=== PATIENT | female | born 1970 | race Hispanic/Latino ===

== ENCOUNTER 2017-10-13 10:06 | Outpatient (CLI) | payer BC ==
--- NOTE | 2017-10-13 11:49 | ULT ---
ULTRASOUND PELVIC ULTRASOUND TRANSVAGINAL DOPPLER DUPLEX: Date: 10/13/17 HISTORY: 47-year-old female with menometrorrhagia. TECHNIQUE: Transabdominal transducer used to evaluate intrapelvic contents using the urinary bladder as an acous tic window. Endovaginal transducer used to visualize intrapelvic contents in greater detail. Color fl ow Doppler and Pulsed Doppler spectral waveform analysis of ovaries. FINDINGS: Uterus: 12.5 x 7.5 x 8.5 cm. Endometrial Stripe: 0.8 cm (8 mm). There is a circumscribed, solid myometrial mass measuring approximately 8.0 x 9.5 x 7.5 cm occupying a large portion of the uterine body and fundus. Right Ovary: 2.5 x 2 x 2 cm. There is a 1.5 x 1 x 1.5 cm dominant follicle in the right ovary. Blood flow is demonstrated in the right ovary by Doppler. Left Ovary: Not visualized. No free fluid is visualized. IMPRESSION: 1. Large, 9.5 cm, uterine leiomyoma (fibroid). 2. Enlargement of the uterus. 3. Essentially normal right ovary. 4. Left ovary not visualized. 5. 8 mm endometrial stripe. GABI Coelho POS: KARMEN
== END 2017-10-13 10:07 | disposition home or self-care (01) ==
LOC: ULT 10:06
PROVIDERS: ATTEND Family Medicine
DX: N92.0 Excessive and frequent menstruation with regular cycle (principal); D25.9 Leiomyoma of uterus, unspecified; N85.2 Hypertrophy of uterus; N85.00 Endometrial hyperplasia, unspecified
CPT/HCPCS: 76856

== ENCOUNTER 2018-05-16 13:38 | Outpatient (CLI) | payer BC | END 2018-05-16 13:39 | disposition home or self-care (01) | LOC: BICMAMMO 13:38 | PROVIDERS: ATTEND Family Medicine | DX: Z12.31 Encounter for screening mammogram for malignant neoplasm of breast (principal) | CPT/HCPCS: 77063; 77067 ==

== ENCOUNTER 2018-11-09 20:15 | Emergency (ER) | payer BC ==
[2018-11-09] MEDS ORDERED: HYDROcodone/Acetaminophen 10/325 mg Tablet ONE ×2 (20:50→20:54)
--- NOTE | 2018-11-09 21:10 | RAD ---
FOUR VIEWS OF THE LEFT KNEE: 11/09/18 COMPARISON: None. HISTORY: Left knee pain. FINDINGS: Four views of the left knee shows no evidence of acute fracture or dislocation. No knee effusion is seen. No degenerative changes are present. IMPRESSION: Unremarkable exam. POS: KARMEN
== END 2018-11-09 21:09 | disposition home or self-care (01) ==
LOC: ERS 20:15
DX: M25.562 Pain in left knee (principal); E05.90 Thyrotoxicosis, unspecified without thyrotoxic crisis or storm; D64.9 Anemia, unspecified; I10 Essential (primary) hypertension; Z79.899 Other long term (current) drug therapy
CPT/HCPCS: 99283

== ENCOUNTER 2019-07-14 14:18 | Outpatient (CLI) | payer BC ==
--- NOTE | 2019-07-14 15:11 | MMO ---
Bilateral MAMMO Bilat Screen [facility]. CLINICAL HISTORY: Patient is 48 years old and is seen for screening. The patient has no family history of breast cancer. The patient has no personal history of cancer. VIEWS: The views performed were: bilateral craniocaudal with tomosynthesis and bilateral mediolateral oblique with tomosynthesis. FILMS COMPARED: The present examination has been compared to prior imaging studies performed at [facility] on 04/06/2014, 10/25/2015, 02/12/2017 and 05/16/2018. MAMMOGRAM FINDINGS: There are scattered fibroglandular densities. There are no suspicious masses, suspicious calcifications, or new areas of architectural distortion. IMPRESSION: THERE IS NO MAMMOGRAPHIC EVIDENCE OF MALIGNANCY. A ROUTINE FOLLOW-UP MAMMOGRAM IN 1 YEAR IS RECOMMENDED. THE RESULTS OF THIS EXAM WERE SENT TO THE PATIENT. ACR BI-RADS Category 1 - Negative MAMMOGRAPHY NOTE: 1. A negative mammogram report should not delay a biopsy if a dominant of clinically suspicious mass is present. 2. Approximately 10% to 15% of breast cancers are not detected by mammography. 3. Adenosis and dense breasts may obscure an underlying neoplasm. Reported by: CEDRIC REYNOLDS MD Electonically Signed: [id number]
== END 2019-07-14 14:19 | disposition home or self-care (01) ==
LOC: BICMAMMO 14:18
PROVIDERS: ATTEND Family Medicine
DX: Z12.31 Encounter for screening mammogram for malignant neoplasm of breast (principal)
CPT/HCPCS: 77063; 77067

== ENCOUNTER 2021-08-28 08:30 | Outpatient (CLI) | payer BC | END 2021-08-28 08:31 | disposition home or self-care (01) | LOC: BICMAMMO 08:30 | PROVIDERS: ATTEND Family Medicine | DX: N63.25 Unspecified lump in the left breast, overlapping quadrants (principal) | CPT/HCPCS: 77066; G0279 ==

== ENCOUNTER 2022-09-24 12:52 | Outpatient (CLI) | payer BC | END 2022-09-24 12:53 | disposition home or self-care (01) | LOC: BICMAMMO 12:52 | PROVIDERS: ATTEND Family Medicine | DX: Z12.31 Encounter for screening mammogram for malignant neoplasm of breast (principal) | CPT/HCPCS: 77063; 77067 ==